=== PATIENT | female | born 1970 | race Caucasian/White ===

== ENCOUNTER 2018-03-13 07:33 | Day surgery (SDC) | payer OTHER ==
[~2018-03-13] VITALS: Ht 160 cm; Wt 93.2 kg
[2018-03-13] MEDS ORDERED: METOPROLOL TARTRATE 50 MG TABLET ONE (08:27)
[2018-03-13] MEDS ORDERED: METOPROLOL TARTRATE 50 MG TABLET PO PRN (08:30)
[2018-03-13] MEDS ORDERED: 0.9% SODIUM CHLORIDE 10 ML SYRINGE IVP PRN (08:30)
[2018-03-13] MEDS ORDERED: METF500T6 PO (08:47)
[2018-03-13] MEDS ORDERED: LISI-661 PO (08:47)
[2018-03-13] MEDS ORDERED: GLIP5 PO (08:47)
[2018-03-13] MEDS ORDERED: ASPI-1182 PO (08:47)
[2018-03-13] MEDS ORDERED: SITA25 PO (08:47)
[2018-03-13] MEDS ORDERED: ATOR10TA84 PO (08:47)
[2018-03-13 08:50] LABS: ANION GAP 8 mmol/L (8-16); CALCIUM, TOTAL 8.8 mg/dL (8.8-10.5); CARBON DIOXIDE 27 mmol/L (22-29); CHLORIDE 98 mmol/L (98-107); CREATININE 0.64 mg/dL (0.60-1.30); GLOMERULAR FILTR. RATE CALC > 60 mL/min (>60); GLUCOSE,RANDOM 295 mg/dL (70-110); POTASSIUM 4.1 mmol/L (3.5-5.1); SODIUM SERUM 133 mmol/L (136-145); UREA NITROGEN, BLOOD 15 mg/dL (7-18)
[2018-03-13] MEDS ORDERED: METOPROLOL TARTRATE 5 MG/5 ML VIAL ONE (10:12)
[2018-03-13] MEDS ORDERED: NITROGLYCERIN 400 MCG/SUBLINGUAL SPRAY 4.9 GM BOTTLE SL ONE ×2 (10:12→11:20)
== END 2018-03-13 11:50 | disposition home or self-care (01) ==
LOC: SURGERY 07:33 → EDSTATUS 10:00 → SURGERY 11:50
PROVIDERS: ATTEND Internal Medicine Cardiovascular Disease
DX: I20.8 Other forms of angina pectoris (principal); E78.5 Hyperlipidemia, unspecified; E11.40 Type 2 diabetes mellitus with diabetic neuropathy, unspecified; I34.0 Nonrheumatic mitral (valve) insufficiency; I10 Essential (primary) hypertension; E78.00 Pure hypercholesterolemia, unspecified; Z79.84 Long term (current) use of oral hypoglycemic drugs; Z85.828 Personal history of other malignant neoplasm of skin; Z79.82 Long term (current) use of aspirin; Z98.890 Other specified postprocedural states; Z79.899 Other long term (current) drug therapy; Z88.0 Allergy status to penicillin
CPT/HCPCS: 75574; 93005; J3490